=== PATIENT | male | born 1985 | race African-American/Black ===

== ENCOUNTER 2017-11-15 00:36 | Emergency (ER) | payer OTHER, MEDICAID | END 2017-11-15 04:46 | disposition home or self-care (01) | LOC: FTE 00:36 | DX: M79.661 Pain in right lower leg (principal); J45.909 Unspecified asthma, uncomplicated | CPT/HCPCS: 93971; 99284-25 ==

== ENCOUNTER 2018-03-31 20:56 | Emergency (ER) | payer OTHER | END 2018-04-01 00:49 | disposition home or self-care (01) | LOC: FTE 04-01 00:49 | DX: R60.9 Edema, unspecified (principal); M79.18 Myalgia, other site; M79.661 Pain in right lower leg; J45.909 Unspecified asthma, uncomplicated | CPT/HCPCS: 93971; 99284-25 ==